=== PATIENT | male | born 1980 | race Hispanic/Latino ===

== ENCOUNTER 2016-07-17 15:58 | Inpatient (IN) | payer OTHER ==
[2016-07-17] MEDS ORDERED: NACL 0.9% 1000 ML 1,000 ML ONE (17:52)
[2016-07-17] MEDS ORDERED: NACL 0.9% 1000 ML 1,000 ML IV ONE ×2 (17:56)
[2016-07-17 18:10] LABS: BUN/Creatinine Ratio 13.33; Calcium 9.5 mg/dL (8.4-10.2)
[2016-07-17 18:11] LABS: Chloride 95.8 mmol/L (98-107); Potassium 3.3 mmol/L (3.6-5.0)
[2016-07-17 18:15] LABS: Basophils % (Auto) 1.1 % (0.0-1.8); Eosinophils % (Auto) 1.3 % (0.0-4.3); Hematocrit 48.9 % (35.5-45.6); Hemoglobin 17.2 gm/dl (11.8-15.2); Mean Corpuscular HGB Conc 35 % (32-34); Mean Corpuscular Hemoglobin 32 pg (28-32); Mean Corpuscular Volume 92 fl (84-94); Platelet Count 262 K/mm3 (140-440); Red Blood Count 5.33 M/mm3 (3.65-5.03); Red Cell Distribution Width 12.6 % (13.2-15.2); White Blood Count 12.4 K/mm3 (4.5-11.0)
[2016-07-17] MEDS ORDERED: K-DUR PO ONE (19:34)
--- NOTE | 2016-07-17 19:36 | Emergency Department Report ---
ED Syncope HPI - General Chief Complaint: Nausea/Vomiting/Diarrhea Stated Complaint: WEAKNESS Time Seen by Provider: 07/17/16 17:48 Source: patient, family Exam Limitations: no limitations - History of Present Illness Initial Comments: 36-year-old male with past medical history hypertension presents to the hospital complains of syncopal episode. Patient was apparently having lunch and felt hot like he needed air. was driving him home when he became unresponsive. No reports of seizure activity. Patient states he felt really lightheaded and hot prior to that episode. Patient has a recent history of significant nausea, vomiting, and diarrhea for 6 days up until yesterday. 5 other members in his household had similar symptoms. No reports of fever, melena, or hematochezia. Patient has ongoing chronic back pain secondary to herniated disks and wrist that the uncomfortable ER bed is exacerbating his pain. Reports of abdominal pain, headache, chest pain, shortness of breath, Tenderness, recent travel, or edema. Patient took his prescribed blood pressure medication this a.m. Patient is scheduled for outpatient echo next week in preparation for exercise clearance. Patient noted to be hypotensive upon arrival - Related Data Allergies/Adverse Reactions: Allergies ceftriaxone sodium [From Rocephin] Allergy (Verified 07/17/16 21:01) Unknown Home Medications: Ambulatory Orders AtorvaSTATin [Lipitor] 40 mg PO DAILY 07/17/16 Losartan/Hydrochlorothiazide [Losartan-Hctz 100-25 mg Tab] 1 tab PO DAILY ED Review of Systems ROS: Stated complaint: WEAKNESS Other details as noted in HPI Comment: All other systems reviewed and negative Other: Constitutional: No fevers chills Eyes: No eye pain visual changes ENT: No ear pain or throat pain Neck: Denies pain Respiratory: Denies cough wheezing shortness of breath Cardiovascular: Denies chest pain, palpitations GI: Denies abdominal pain : Denies dysuria Musculoskeletal: Chronic back pain Skin: Denies rash, lesions, erythema Neurologic: Denies headache, numbness Psychiatric: Denies suicidal ideation, hallucinations Hematological/lymphatic: Denies easy bruising, lymphadenopathy ED Past Medical Hx - Past Medical History Previous Medical History?: Yes Hx Hypertension: Yes Additional medical history: high cholesterol - Surgical History Past Surgical History?: Yes Hx Appendectomy: Yes (@14 years of age) Additional Surgical History: rt shoulder repair 2013 - Social History Smoking Status: Unknown if ever smoked Substance Use Type: Alcohol - Medications Home Medications: Home Medications Medication Instructions Recorded Confirmed Last Taken Type AtorvaSTATin [Lipitor] 40 mg PO DAILY 07/17/16 07/17/16 Unknown History Losartan/Hydrochlorothiazide 1 tab PO DAILY 07/17/16 07/17/16 07/17/16 History [Losartan-Hctz 100-25 mg Tab] ED Physical Exam - General Limitations: No Limitations - Other Other exam information: General: Generalized weakness Head exam: Atraumatic, normocephalic Eyes exam: Normal appearance, pupils equal reactive to light, extraocular movements intact ENT: Moist mucous membrane, normal oropharynx Neck exam: Normal inspection, full range of motion, no meningismus nontender Respiratory exam: Clear to auscultation bilateral, no wheezes, rales, crackles Cardiovascular: Normal rate and rhythm, normal heart sounds Abdomen: Soft, nondistended, and nontender, with normal bowel sounds, no rebound, or guarding Extremity: Full range of motion normal inspection no deformity Back: Normal Inspection, full range of motion, no tenderness Neurologic: Alert, oriented x3, cranial nerves intact, generalized weakness without focality, sensation intact Psychiatric: normal affect, normal mood Skin: Warm, dry, intact ED Course Vital Signs 07/17/16 07/17/16 07/17/16 17:00 17:11 17:15 Temperature 98.4 F Pulse Rate 96 H 104 H 104 H Respiratory 15 15 Rate Blood Pressure 92/50 95/59 O2 Sat by Pulse 95 100 Oximetry 07/17/16 07/17/16 07/17/16 17:19 17:30 17:45 Temperature Pulse Rate 98 H 101 H Respiratory 18 13 14 Rate Blood Pressure 92/50 85/54 O2 Sat by Pulse 100 98 93 Oximetry 07/17/16 07/17/16 07/17/16 18:00 18:15 18:30 Temperature Pulse Rate 96 H 98 H Respiratory 12 14 13 Rate Blood Pressure 96/66 93/60 92/50 O2 Sat by Pulse 91 92 95 Oximetry 07/17/16 07/17/16 07/17/16 18:46 19:00 19:15 Temperature 98.6 F Pulse Rate Respiratory 14 12 18 Rate Blood Pressure 93/53 103/65 O2 Sat by Pulse 93 93 100 Oximetry 07/17/16 19:16 Temperature Pulse Rate 98 H Respiratory 13 Rate Blood Pressure 103/65 O2 Sat by Pulse 98 Oximetry - Reevaluation(s) Reevaluation #1: 07/17/16 21:20 Hypotension improved with IV fluid hydration. Patient reports feeling better. Still feeling thirsty and requesting water. No pain. ED Medical Decision Making - Lab Data Result diagrams: 07/17/16 17:29 07/17/16 17:29 Lab Results 07/17/16 07/17/16 07/17/16 Range/Units 17:29 17:29 17:29 WBC 12.4 H (4.5-11.0) K/mm3 RBC 5.33 H (3.65-5.03) M/mm3 Hgb 17.2 H (11.8-15.2) gm/dl Hct 48.9 H (35.5-45.6) % MCV 92 (84-94) fl MCH 32 (28-32) pg MCHC 35 H (32-34) % RDW 12.6 L (13.2-15.2) % Plt Count 262 (140-440) K/mm3 Lymph % (Auto) 12.3 L (13.4-35.0) % [place] % (Auto) 6.5 (0.0-7.3) % Eos % (Auto) 1.3 (0.0-4.3) % Baso % (Auto) 1.1 (0.0-1.8) % Lymph # 1.5 (1.2-5.4) K/mm3 [place] # 0.8 (0.0-0.8) K/mm3 Eos # 0.2 (0.0-0.4) K/mm3 Baso # 0.1 (0.0-0.1) K/mm3 Seg Neutrophils % 78.8 H (40.0-70.0) % Seg Neutrophils # 9.8 H (1.8-7.7) K/mm3 Sodium 136 L (137-145) mmol/L Potassium 3.3 L (3.6-5.0) mmol/L Chloride 95.8 L (98-107) mmol/L Carbon Dioxide 23 (22-30) mmol/L Anion Gap 21 mmol/L BUN 24 H (9-20) mg/dL Creatinine 1.8 H (0.8-1.5) mg/dL Estimated GFR 42 ml/min BUN/Creatinine Ratio 13.33 % Glucose 105 H (75-100) mg/dL Calcium 9.5 (8.4-10.2) mg/dL Magnesium (1.7-2.3) mg/dL Total Bilirubin 0.6 (0.1-1.2) mg/dL Direct Bilirubin 0.2 (0-0.2) mg/dL Indirect Bilirubin 0.4 mg/dL AST 55 H (5-40) units/L ALT 122 H (7-56) units/L Alkaline Phosphatase 105 (35-129) units/L Total Creatine Kinase 768 H (55-170) units/L CK-MB (CK-2) 38.0 H (0.0-4.0) ng/mL CK-MB (CK-2) Rel Index 4.9 H (0-4) Troponin T 0.222 H* (0.00-0.029) ng/mL Total Protein 7.1 (6.3-8.2) g/dL Albumin 4.4 (3.9-5) g/dL Albumin/Globulin Ratio 1.6 % Lipase 54 (13-60) units/L /18/17 Range/Units 19:38 WBC (4.5-11.0) K/mm3 RBC (3.65-5.03) M/mm3 Hgb (11.8-15.2) gm/dl Hct (35.5-45.6) % MCV (84-94) fl MCH (28-32) pg MCHC (32-34) % RDW (13.2-15.2) % Plt Count (140-440) K/mm3 Lymph % (Auto) (13.4-35.0) % [place] % (Auto) (0.0-7.3) % Eos % (Auto) (0.0-4.3) % Baso % (Auto) (0.0-1.8) % Lymph # (1.2-5.4) K/mm3 [place] # (0.0-0.8) K/mm3 Eos # (0.0-0.4) K/mm3 Baso # (0.0-0.1) K/mm3 Seg Neutrophils % (40.0-70.0) % Seg Neutrophils # (1.8-7.7) K/mm3 Sodium (137-145) mmol/L Potassium (3.6-5.0) mmol/L Chloride (98-107) mmol/L Carbon Dioxide (22-30) mmol/L Anion Gap mmol/L BUN (9-20) mg/dL Creatinine (0.8-1.5) mg/dL Estimated GFR ml/min BUN/Creatinine Ratio % Glucose (75-100) mg/dL Calcium (8.4-10.2) mg/dL Magnesium 2.3 (1.7-2.3) mg/dL Total Bilirubin (0.1-1.2) mg/dL Direct Bilirubin (0-0.2) mg/dL Indirect Bilirubin mg/dL AST (5-40) units/L ALT (7-56) units/L Alkaline Phosphatase (35-129) units/L Total Creatine Kinase (55-170) units/L CK-MB (CK-2) (0.0-4.0) ng/mL CK-MB (CK-2) Rel Index (0-4) Troponin T (0.00-0.029) ng/mL Total Protein (6.3-8.2) g/dL Albumin (3.9-5) g/dL Albumin/Globulin Ratio % Lipase (13-60) units/L - EKG Data -: EKG Interpreted by Me (sinus rhythm rate [address] elevation T-wave inversion) - EKG Data When compared to previous EKG there are: previous EKG unavailable - Medical Decision Making I suspect the symptoms are secondary to vomiting increasing given her recent history nausea, vomiting, diarrhea, and associated hypotension. Patient also took his blood pressure medication which includes a diuretic daily including today. Symptoms improved with volume repletion. Patient has renal sufficiency that could be secondary to acute dehydration. Previous creatinine not available for comparison. Associated increased troponin could be secondary to renal sufficiency however, I will admit the patient to the hospital for repeat cardiac enzyme testing and observation. By mouth potassium ordered for mild hypokalemia - Differential Diagnosis volume depletion, anemia, arrhythmia, vasovagal Critical Care Time: No Critical care attestation.: If time is entered above; I have spent that time in minutes in the direct care of this critically ill patient, excluding procedure time. ED Disposition Clinical Impression: Syncope, Dehydration, Hypotension, Gastroenteritis, Hypokalemia, Renal insufficiency, Elevated troponin Disposition: OP ADMITTED IP TO THIS HOSP Is pt being admited?: Yes Condition: Stable Time of Disposition: 21:23 (Dr Loaiza/hosp)
[2016-07-17 20:38] LABS: Albumin 4.4 g/dL (3.9-5); Albumin/Globulin Ratio 1.6 %; Bilirubin,Direct 0.2 mg/dL (0-0.2); Bilirubin,Indirect 0.4 mg/dL; Bilirubin,Total 0.6 mg/dL (0.1-1.2); Total Protein 7.1 g/dL (6.3-8.2)
[2016-07-17 21:51] LABS: Bacteria,Urine 1+ /HPF (Negative); Bilirubin,Urine NEG (Negative); Blood,Urine NEG (Negative); Ketones,Urine NEG (Negative); Leukocyte Esterase,Urine NEG (Negative); Mucus,Urine 2+ /HPF; Nitrite,Urine NEG (Negative); Protein,Urine <15 mg/dL mg/dL (Negative); Urobilinogen,Urine < 2.0 mg/dL (<2.0)
[2016-07-17] MEDS ORDERED: DULCOLAX PR PRN (22:01)
[2016-07-17] MEDS ORDERED: MILK OF MAGNESIA PO PRN (22:01)
[2016-07-17] MEDS ORDERED: TYLENOL PO PRN (22:01)
[2016-07-17] MEDS ORDERED: PERCOCET 5/325 PO PRN (22:01)
[2016-07-17] MEDS ORDERED: PROVENTIL IH PRN (22:01)
[2016-07-17] MEDS ORDERED: ZOFRAN IV PRN (22:01)
--- NOTE | 2016-07-17 22:12 | History and Physical Report ---
History of Present Illness Date of examination: 07/17/16 History of present illness: 36-year-old man with a history of hypertension, hyperlipidemia comes emergency room with complaints of syncope for unknown time. Patient stated that over the last 1 week he had nausea, diarrhea, his stool is now loose. Today he was at the restaurant, he felt like his vision and hearing was going, he went outside for some fresh air. On his way home he had a syncopal episode in the car Patient denies chest pain, palpitation, recent travel, shortness of breath, cough, abdominal pain, hematochezia, dysuria, frequency, focal weakness, dysarthria, fever chills, polydipsia polyuria, hot or cold intolerance, easy bruisability, or rash or bleeding from mucosal membrane, rhinorrhea, epistaxis, earache, tinnitus, blurry vision, eye discharge, anxiety, depression. Other review of systems negative PAST SURGICAL HISTORY: Right shoulder, appendectomy SOCIAL HISTORY: Pack a day, daily alcohol use but has not drank in the last 1 week, no drugs FAMILY HISTORY hypertension: Medications and Allergies Allergies Allergy/AdvReac Type Severity Reaction Status Date / Time ceftriaxone sodium Allergy Unknown Verified 07/17/16 21:01 [From Rocephin] Home Medications Medication Instructions Recorded Confirmed Last Taken Type AtorvaSTATin [Lipitor] 40 mg PO DAILY 07/17/16 07/17/16 Unknown History Losartan/Hydrochlorothiazide 1 tab PO DAILY 07/17/16 07/17/16 07/17/16 History [Losartan-Hctz 100-25 mg Tab] Exam - Physical Exam Narrative exam: Gen. appearance: Patient lying in bed, no apparent distress HEENT: Normocephalic, atraumatic, pupils equally round and reactive to light, extraocular movement intact, and no sclericterus,. No JVD or thyromegaly or nodule,neck supple, no carotid bruit ,mucous membranes moist, no exudate or erythema Heart: S1, S2, regular rate and rhythm Lungs: Clear to auscultation bilaterally, breathing comfortable Abdomen: Positive bowel sounds, nontender, nondistended, no organomegaly Extremity: No edema, cyanosis, clubbing Skin: No rash, nodules, warm, dry Neuro: Oriented 3, cranial nerves II-12 intact, speech is fluent, motor and sensory intact - Constitutional Vitals: Temp Pulse Resp BP Pulse Ox 98.6 F 98 H 13 103/65 98 07/17/16 19:15 07/17/16 19:16 07/17/16 19:16 07/17/16 19:16 07/17/16 19:16 Results - Labs CBC & Chem 7: 07/17/16 17:29 07/17/16 17:29 Labs: Abnormal lab results 07/17/16 07/17/16 07/17/16 Range/Units 17:29 17:29 17:29 WBC 12.4 H (4.5-11.0) K/mm3 RBC 5.33 H (3.65-5.03) M/mm3 Hgb 17.2 H (11.8-15.2) gm/dl Hct 48.9 H (35.5-45.6) % MCHC 35 H (32-34) % RDW 12.6 L (13.2-15.2) % Lymph % (Auto) 12.3 L (13.4-35.0) % Seg Neutrophils % 78.8 H (40.0-70.0) % Seg Neutrophils # 9.8 H (1.8-7.7) K/mm3 Sodium 136 L (137-145) mmol/L Potassium 3.3 L (3.6-5.0) mmol/L Chloride 95.8 L (98-107) mmol/L BUN 24 H (9-20) mg/dL Creatinine 1.8 H (0.8-1.5) mg/dL Glucose 105 H (75-100) mg/dL AST 55 H (5-40) units/L ALT 122 H (7-56) units/L Total Creatine Kinase 768 H (55-170) units/L CK-MB (CK-2) 38.0 H (0.0-4.0) ng/mL CK-MB (CK-2) Rel Index 4.9 H (0-4) Troponin T 0.222 H* (0.00-0.029) ng/mL Triglycerides 189 H (2-149) mg/dL HDL Cholesterol 23 L (40-59) mg/dL - Imaging and Cardiology EKG: image reviewed Assessment and Plan Acute renal failure Syncope Hypertension Hyperlipidemia Admits medicine Start IV fluid, check cardiac enzymes, d-dimer, echo Consult cardiology, hold antihypertensives Start DVT prophylaxis
[2016-07-17] MEDS ORDERED: NACL 0.9% 1000 ML 1,000 ML IV SCH (23:00)
[2016-07-18 00:06] LABS: Creatine Kinase MB 26.6 ng/mL (0.0-4.0)
[2016-07-18 07:21] LABS: Basophils % (Auto) 1.5 % (0.0-1.8); Eosinophils % (Auto) 3.7 % (0.0-4.3); Hemoglobin 15.2 gm/dl (11.8-15.2); Mean Corpuscular HGB Conc 35 % (32-34); Mean Corpuscular Hemoglobin 32 pg (28-32); Mean Corpuscular Volume 93 fl (84-94); Platelet Count 192 K/mm3 (140-440); Red Blood Count 4.73 M/mm3 (3.65-5.03); Red Cell Distribution Width 12.4 % (13.2-15.2); White Blood Count 7.9 K/mm3 (4.5-11.0)
[2016-07-18 07:31] LABS: Anion Gap 19 mmol/L; BUN/Creatinine Ratio 23.75; Blood Urea Nitrogen 19 mg/dL (9-20); Calcium 8.9 mg/dL (8.4-10.2); Carbon Dioxide 27 mmol/L (22-30); Chloride 96.6 mmol/L (98-107); Glucose 93 mg/dL (75-100); Potassium 3.3 mmol/L (3.6-5.0); Sodium 139 mmol/L (137-145)
[2016-07-18 07:34] LABS: Creatine Kinase MB 25.8 ng/mL (0.0-4.0)
[2016-07-18] MEDS ORDERED: LOVENOX SUB-Q SCH ×2 (10:00)
[2016-07-18] MEDS ORDERED: NON-FORMULARY (Losartan/Hydrochlorothiazide [Losartan-Hctz 100-25 Mg Tab] 1 TAB) PO SCH (12:30)
[2016-07-18] MEDS ORDERED: K-DUR PO ONE (13:00)
[2016-07-18] MEDS ORDERED: HCTZ PO SCH (13:00)
[2016-07-18] MEDS ORDERED: COZAAR PO SCH (13:00)
[2016-07-18 14:04] VITALS: BP 145/87
--- NOTE | 2016-07-18 14:20 | Consultation ---
History of Present Illness Consult date: 07/18/16 Consult reason: syncope History of present illness: The patient is a 36-year-old man who is admitted to the hospital following a syncopal episode. Cardiac consultation was for syncope assessment. The patient's syncope was preceded by several days of nausea, vomiting and diarrhea. Apparently, several members in his household were simultaneously experiencing persistent nausea vomiting and diarrhea. Patient's symptoms persisted, until this syncopal episode which was accompanied by diaphoresis and feeling "hot". There was no chest pain, no palpitations, no prior cardiac history. His laboratory values on presentation are consistent with dehydration. BUN was 24, creatinine 1.8, liver enzymes AST and ALT with 55 and 122 respectively. The total CPK was elevated at 768 but MB fraction less than 5%. Blood pressure was in the low 90s systolic. EKG on presentation was normal sinus rhythm, normal ECG. Past History Past Medical History: hypertension, hyperlipidemia Medications and Allergies Allergies Allergy/AdvReac Type Severity Reaction Status Date / Time ceftriaxone sodium Allergy Unknown Verified 07/17/16 21:01 [From [facility]] Home Medications Medication Instructions Recorded Confirmed Last Taken Type AtorvaSTATin [Lipitor] 40 mg PO DAILY 07/17/16 07/17/16 Unknown History Losartan/Hydrochlorothiazide 1 tab PO DAILY 07/17/16 07/17/16 07/17/16 History [Losartan-Hctz 100-25 mg Tab] Active Meds: Active Medications Acetaminophen (Tylenol) 650 mg PO Q4H PRN PRN Reason: Pain MILD(1-3)/Fever >100.5/MILLS Albuterol (Proventil) 2.5 mg IH Q3HRT PRN PRN Reason: Shortness Of Breath Atorvastatin Calcium (Lipitor) 40 mg PO QHS [facility] Bisacodyl (Dulcolax) 10 mg [place] QDAY PRN PRN Reason: Constipation unrelieved by MOM Enoxaparin Sodium (Lovenox) 40 mg SUB-Q QDAY@1000 LUC Last Admin: 07/18/16 10:33 Dose: 40 mg Hydrochlorothiazide (Hctz) 25 mg PO QDAY [facility] Sodium Chloride (Nacl 0.9% 1000 Ml) 1,000 mls @ 150 mls/hr IV DIRECT LUC Losartan Potassium (Cozaar) 100 mg PO QDAY [facility] Last Admin: 07/18/16 12:55 Dose: 100 mg Magnesium Hydroxide (Milk Of Magnesia) 30 ml PO Q4H PRN PRN Reason: Constipation Ondansetron HCl (Zofran) 4 mg IV Q8H PRN PRN Reason: N/V unrelieved by Reglan Oxycodone/Acetaminophen (Percocet 5/325) 1 tab PO Q6H PRN PRN Reason: Pain, Moderate (4-6) Review of Systems Cardiovascular: syncope, no chest pain, no orthopnea, no palpitations, no rapid/ irregular heart beat, no edema, no lightheadedness, no shortness of breath Gastrointestinal: abdominal pain, nausea, vomiting, diarrhea Physical Examination Vital Signs Pulse Resp Pulse Ox 96 H 15 95 07/17/16 17:00 07/17/16 17:00 07/17/16 17:00 General appearance: no acute distress HEENT: Positive: PERRL Neck: Positive: neck supple Cardiac: Positive: Reg Rate and Rhythm Lungs: Positive: Decreased Breath Sounds Neuro: Positive: Grossly Intact Abdomen: Positive: Soft Male genitourinary: Positive: deferred Skin: Positive: Clear Extremities: Absent: edema Results 07/18/16 06:57 07/18/16 06:57 Cardiac Enzymes 07/17/16 07/18/16 Range/Units 23:27 06:57 CK-MB (CK-2) 26.6 H 25.8 H (0.0-4.0) ng/mL CBC 07/18/16 Range/Units 06:57 WBC 7.9 (4.5-11.0) K/mm3 RBC 4.73 (3.65-5.03) M/mm3 Hgb 15.2 (11.8-15.2) gm/dl Hct 44.0 (35.5-45.6) % Plt Count 192 (140-440) K/mm3 Lymph # 1.9 (1.2-5.4) K/mm3 [place] # 0.7 (0.0-0.8) K/mm3 Eos # 0.3 (0.0-0.4) K/mm3 Baso # 0.1 (0.0-0.1) K/mm3 Comprehensive Metabolic Panel 07/18/16 Range/Units 06:57 Sodium 139 (137-145) mmol/L Potassium 3.3 L (3.6-5.0) mmol/L Chloride 96.6 L (98-107) mmol/L Carbon Dioxide 27 (22-30) mmol/L BUN 19 (9-20) mg/dL Creatinine 0.8 D (0.8-1.5) mg/dL Glucose 93 (75-100) mg/dL Calcium 8.9 (8.4-10.2) mg/dL EKG interpretations - Telemetry EKG Rhythm: Sinus Rhythm Assessment and Plan - Patient Problems (1) Syncope Current Visit: Yes Status: Acute Qualifiers: Syncope type: S Encounter type: E Plan to address problem: Patient's syncope is vasovagal syncope. Vagal syncope was preceded by several days of nausea vomiting diarrhea and attend and dehydration. Based on his presentation, there is no clinical suspicion that syncope has any cardiac etiology. Treatment is rehydration, correction of metabolic abnormalities and further evaluation if indicated for the etiology of his diarrhea. No further cardiac workup is indicated.
== END 2016-07-18 13:45 | disposition left against medical advice (07) | DRG 684 ==
LOC: ED 15:58 → 4A 22:01
PROVIDERS: ADMIT Internal Medicine; ATTEND Internal Medicine
DX: N17.9 Acute kidney failure, unspecified (principal); F17.210 Nicotine dependence, cigarettes, uncomplicated; I10 Essential (primary) hypertension; E78.5 Hyperlipidemia, unspecified; R55 Syncope and collapse; E78.00 Pure hypercholesterolemia, unspecified; E87.6 Hypokalemia; K52.9 Noninfective gastroenteritis and colitis, unspecified; I95.9 Hypotension, unspecified; Z88.8 Allergy status to other drugs, medicaments and biological substances; Z90.49 Acquired absence of other specified parts of digestive tract; Z82.49 Family history of ischemic heart disease and other diseases of the circulatory system
CPT/HCPCS: 36415; 80048; 80061; 80074; 81001; 82550; 82553; 82962; 83690; 83735; 84484; 85025; 85379; 93005; 93010; 93306; 96360; 96361; J1650; J7030